=== PATIENT | female | born 1990 | race Caucasian/White ===

== ENCOUNTER 2024-07-02 10:00 | Outpatient (CLI) | payer OTHER, SELFPAY | END 2024-07-02 10:01 | disposition home or self-care (01) | PROVIDERS: Visit Provider Nurse Practitioner Family | DX: M79.604 Pain in right leg (principal); I83.90 Asymptomatic varicose veins of unspecified lower extremity; Z82.79 Family history of other congenital malformations, deformations and chromosomal abnormalities | CPT/HCPCS: 80053; 85025 ==